=== PATIENT | male | born 1995 | race Caucasian/White ===

== ENCOUNTER 2021-02-25 22:50 | Inpatient (IN) | payer MEDICAID ==
[2021-02-25] MEDS ORDERED: Pantoprazole 40 MG in Sodium Chloride 0.9% 100 ML IV ONE (23:28)
[2021-02-25] MEDS ORDERED: Ondansetron 4 MG/2 ML SDV IVPUSH ONE (23:29)
[2021-02-25] MEDS ORDERED: HYDROmorphone 1 MG/ML Syringe IVPUSH ONE (23:29)
[2021-02-25] MEDS ORDERED: Sodium Chloride 0.9% 1,000 ML IV ONE (23:30)
--- NOTE | 2021-02-26 01:46 | EDM.PDOC ---
ED HPI GENERAL MEDICAL PROBLEM - General Chief Complaint: Abdominal Pain Stated Complaint: ABDOMINAL PAIN Time Seen by Provider: 02/25/21 23:15 Source of Information: Reports: Patient History Limitations: Reports: No Limitations - History of Present Illness INITIAL COMMENTS - FREE TEXT/NARRATIVE: Patient is a 25-year-old male who is complaining of having 3 days of abdominal pain with vomiting for which he was just seen this afternoon at [facility] emergency department and was worked up there including an CT of his abdomen which showed him to have a early small bowel obstruction and was being admitted there after consulting with their surgeon on patient left AGAINST MEDICAL ADVICE because the 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 Patient is from [place]. He has had a bowel resection due to bowel obstruction previously. He has had no other surgeries. And he states there was no known reason for his earlier bowel obstruction. He states he is not been passing gas and has not had any bowel movements today. He states his pain is similar to his previous bowel obstruction. He has taken nothing for his current symptoms. He has no other past medical history. 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 Past Medical History HEENT History: Reports: Sinusitis Gastrointestinal History: Reports: Bowel Obstruction Other Gastrointestinal History: surgery to repair bowel obstruction 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 Constitutional: Reports: No Symptoms Respiratory: Reports: No Symptoms Cardiovascular: Reports: No Symptoms GI/Abdominal: Reports: Abdominal Pain, Decreased Appetite, Nausea, Vomiting. Denies: Diarrhea : Reports: No Symptoms ED EXAM, GI/ABD - Physical Exam Exam: See Below Exam Limited By: No Limitations General Appearance: Alert, No Apparent Distress Head: Normocephalic Neck: Normal Inspection Respiratory/Chest: No Respiratory Distress, Lungs Clear Cardiovascular: Regular Rate, Rhythm, No JVD GI/Abdominal Exam: Tender, Abnormal Bowel Sounds. No: Mass Back Exam: Normal Inspection Extremities: Normal Inspection Neurological: Alert, Oriented Psychiatric: Normal Affect, Normal Mood Skin Exam: Warm, Dry Course - Vital Signs Text/Narrative:: He obtain lab work and CT report and ED provider records from [facility]. Indeed patient was being admitted for early small bowel obstruction when he left AGAINST MEDICAL ADVICE. Patient was given a dose of Zosyn there. The surgeon had recommended an NG tube. Patient was discussed with our surgeon Dr. Perez who recommends that we do keep him here in the department with IV fluids and NG tube and he will see him in the morning. At that point it will be determine whether he needs admission or is improved enough that he can be discharged home. Last Recorded V/S: Last Vital Signs Temp 99.3 F 02/26/21 07:45 Pulse 78 02/26/21 07:45 Resp 16 02/26/21 07:45 BP 122/79 02/26/21 07:45 Pulse Ox 100 02/26/21 07:45 - Orders/Labs/Meds Orders: Active Orders 24 hr Category Date Time Status Gastrointestinal Tube Mgmt [RC] ASDIRECTED Care 02/26/21 00:45 Active CBC WITH MANUAL DIFF [HEME] Stat Lab 02/26/21 06:45 Results Sodium Chloride 0.9% [Normal Saline] 1,000 ml Med 02/26/21 02:37 Active IV ONETIME NG [Nasogastric Orogastric Tube Insertion] [OM.PC] Oth 02/26/21 00:45 Ordered Routine Medication Orders Sodium Chloride (Normal Saline) 1,000 mls @ 150 mls/hr IV ONETIME ONE Stop: 02/26/21 09:16 Last Admin: 02/26/21 02:42 Dose: 150 mls/hr Documented by: DARCY Labs: Laboratory Tests 02/26/21 02/26/21 02/26/21 Range/Units 06:45 06:45 06:45 WBC 11.16 H (4.23-9.07) K/mm3 RBC 4.38 L (4.63-6.08) M/mm3 Hgb 13.7 (13.7-17.5) gm/dl Hct 40.1 (40.1-51.0) % MCV 91.6 (79.0-92.2) fl MCH 31.3 (25.7-32.2) pg MCHC 34.2 (32.2-35.5) g/dl RDW Std Deviation 41.1 (35.1-43.9) fL Plt Count 239 (163-337) K/mm3 MPV 9.1 L (9.4-12.3) fl Sodium 147 H (136-145) mEq/L Potassium 3.9 (3.5-5.1) mEq/L Chloride 111 H (98-107) mEq/L Carbon Dioxide 27 (21-32) mEq/L Anion Gap 12.9 (5-15) BUN 9 (7-18) mg/dL Creatinine 0.8 (0.7-1.3) mg/dL Est Cr Clr Drug Dosing 125.32 mL/min Estimated GFR (MDRD) > 60 (>60) mL/min BUN/Creatinine Ratio 11.3 L (14-18) Glucose 101 H (70-99) mg/dL Lactic Acid 0.6 (0.4-2.0) mmol/L Calcium 9.2 (8.5-10.1) mg/dL Total Bilirubin 0.6 (0.2-1.0) mg/dL AST 7 L (15-37) U/L ALT 15 L (16-63) U/L Alkaline Phosphatase 96 (46-116) U/L Total Protein 6.1 L (6.4-8.2) g/dl Albumin 3.8 (3.4-5.0) g/dl Globulin 2.3 gm/dL Albumin/Globulin Ratio 1.7 (1-2) Meds: Medications Generic Name Dose Route Start Last Admin Trade Name Freq PRN Reason Stop Dose Admin Sodium Chloride 1,000 mls @ 150 mls/hr 02/26/21 02:37 02/26/21 02:42 Normal Saline IV 02/26/21 09:16 150 mls/hr ONETIME ONE Administration Discontinued Medications Generic Name Dose Route Start Last Admin Trade Name Freq PRN Reason Stop Dose Admin Hydromorphone HCl 1 mg 02/25/21 23:29 02/26/21 00:18 Hydromorphone 1 Mg/Ml Syringe IVPUSH 02/25/21 23:30 1 mg ONETIME ONE Administration Hydromorphone HCl 1 mg 02/26/21 06:07 02/26/21 06:13 Hydromorphone 1 Mg/Ml Syringe IVPUSH 02/26/21 06:08 1 mg ONETIME ONE Administration Pantoprazole Sodium 40 mg/ 100 mls @ 200 mls/hr 02/25/21 23:28 02/26/21 00:13 Sodium Chloride IV 02/25/21 23:57 200 mls/hr ONETIME ONE Administration Sodium Chloride 1,000 mls @ 1,000 mls/hr 02/25/21 23:30 02/26/21 00:12 Normal Saline IV 02/26/21 00:29 1,000 mls/hr ONETIME ONE Administration Sodium Chloride 150 mls @ 150 mls/hr 02/26/21 02:25 02/26/21 02:37 Normal Saline IV 02/26/21 03:24 Not Given ASDIRECTED ONE Sodium Chloride Confirm 02/26/21 02:33 02/26/21 02:37 Normal Saline Administered 02/26/21 02:34 Not Given Dose 1,000 mls @ as directed .ROUTE .STK-MED ONE Ondansetron HCl 4 mg 02/25/21 23:29 02/26/21 00:13 Ondansetron 4 Mg/2 Ml Sdv IVPUSH 02/25/21 23:30 4 mg ONETIME ONE Administration Departure - Departure Disposition: Still A Patient 30 - Discharge Information Referrals: PCP,Not In Area [Primary Care Provider] - Forms: ED Department Discharge Sepsis Event Note (ED) - Evaluation Sepsis Screening Result: No Definite Risk - Focused Exam Vital Signs: Vital Signs Temp Pulse Resp BP Pulse Ox 02/26/21 07:45 99.3 F 78 16 122/79 100 02/25/21 23:08 99.2 F 98 20 140/83 98 - My Orders Last 24 Hours: My Active Orders 02/26/21 00:45 Gastrointestinal Tube Mgmt [RC] ASDIRECTED NG [Nasogastric Orogastric Tube Insertion] [OM.PC] Routine 02/26/21 02:37 Sodium Chloride 0.9% [Normal Saline] 1,000 ml IV ONETIME 02/26/21 06:45 CBC WITH MANUAL DIFF [HEME] Stat - Assessment/Plan Last 24 Hours: My Active Orders 02/26/21 00:45 Gastrointestinal Tube Mgmt [RC] ASDIRECTED NG [Nasogastric Orogastric Tube Insertion] [OM.PC] Routine 02/26/21 02:37 Sodium Chloride 0.9% [Normal Saline] 1,000 ml IV ONETIME 02/26/21 06:45 CBC WITH MANUAL DIFF [HEME] Stat
[2021-02-26] MEDS ORDERED: Sodium Chloride 0.9% 1,000 ML ONE (02:33)
[2021-02-26] MEDS ORDERED: Sodium Chloride 0.9% 1,000 ML IV ONE (02:37)
[2021-02-26] MEDS ORDERED: HYDROmorphone 1 MG/ML Syringe IVPUSH ONE (06:07)
--- NOTE | 2021-02-26 06:53 | CR ---
Chest: Frontal view of the chest was obtained. Comparison: No prior chest imaging is available. Nasogastric tube is seen. Tip lies minimally past the gastroesophageal junction and should be advanced. No tube coiling is seen. Heart size and mediastinum are normal. Lungs show no acute parenchymal change. Small portion of the lateral chest was not included on the exam. No discrete bony abnormality is appreciated. Impression: 1. Nasogastric tube is seen. No coiling is noted. Tip lies slightly past the gastroesophageal junction and should be advanced. 2. Nothing acute is otherwise seen on somewhat limited chest x-ray. Diagnostic code #2
[2021-02-26] MEDS ORDERED: Ondansetron 4 MG/2 ML SDV IVPUSH ONE (08:45)
[2021-02-26] MEDS ORDERED: Morphine 4 MG/ML Syringe IVPUSH ONE (08:45)
--- NOTE | 2021-02-26 09:20 | PCM.HP.2 ---
H&P History of Present Illness - General Date of Service: 02/26/21 Source of Information: Patient History Limitations: Reports: No Limitations - History of Present Illness Initial Comments - Free Text/Narative: Patient reports that he had abdominal pain, nausea and vomiting for the past 3-4 days. In the past day he had not been able to eat much or drink much. He presented to the ER in [place] for this issue. He reports that CT revealed concern for developing small bowel obstruction and was admitted for bowel rest and NGT. But he left AMA as his crew was leaving the location and he did not have any other transportation. He came to [facility] for continued care. In the ER he continued to have mild-moderate abdominal pain. His pain is mostly periumbilical. Still not tolerating much, feels blotted. 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 Unfortunately there are no formal CT images or report for me to review at this time. He continues to be stable. WBC is 11. Last BM was 3 days ago. Not passed gas in the past 24-48 hrs. Smokes cigarettes but denies any other drug use including marijuana. 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 Past Medical History HEENT History: Reports: Sinusitis Gastrointestinal History: Reports: Bowel Obstruction Other Gastrointestinal History: surgery to repair bowel obstruction 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 - Infectious Disease History Infectious Disease History: Reports: None Social & Family History - Family History Family Medical History: No Pertinent Family History - Tobacco Use Tobacco Use Status *Q: Current Some Day Tobacco User Years of Tobacco use: 9 Packs/Tins Daily: 0.5 - Caffeine Use Caffeine Use: Reports: None - Recreational Drug Use Recreational Drug Use: No H&P Review of Systems - Review of Systems: Review Of Systems: See Below General: Reports: No Symptoms HEENT: Reports: No Symptoms Pulmonary: Reports: No Symptoms Cardiovascular: Reports: No Symptoms Gastrointestinal: Reports: Abdominal Pain, Anorexia Genitourinary: Reports: No Symptoms Musculoskeletal: Reports: No Symptoms Skin: Reports: No Symptoms Psychiatric: Reports: No Symptoms Neurological: Reports: No Symptoms Exam - Exam Exam: See Below - Vital Signs Vital Signs: Last Vital Signs Temp 99.3 F 02/26/21 07:45 Pulse 78 02/26/21 07:45 Resp 16 02/26/21 07:45 BP 122/79 02/26/21 07:45 Pulse Ox 100 02/26/21 07:45 Weight: 63.321 kg - Exam General: Alert, Oriented, Cooperative Lungs: Clear to Auscultation, Normal Respiratory Effort Cardiovascular: Regular Rate, Regular Rhythm, Normal S1, Normal S2 GI/Abdominal Exam: Soft, No Mass, Distended (mild), Tender (in the ligline, periumbilical. very tender a the prior supraumbilical midline incision) (Male) Exam: Hernia (likely an incisional hernia at the supraumbilical midline incision) - Patient Data Lab Results Last 24 hrs: Laboratory Results - last 24 hr 02/26/21 02/26/21 02/26/21 Range/Units 06:45 06:45 06:45 WBC 11.16 H (4.23-9.07) K/mm3 RBC 4.38 L (4.63-6.08) M/mm3 Hgb 13.7 (13.7-17.5) gm/dl Hct 40.1 (40.1-51.0) % MCV 91.6 (79.0-92.2) fl MCH 31.3 (25.7-32.2) pg MCHC 34.2 (32.2-35.5) g/dl RDW Std Deviation 41.1 (35.1-43.9) fL Plt Count 239 (163-337) K/mm3 MPV 9.1 L (9.4-12.3) fl Neutrophils % (Manual) 78 H (40-60) % Band Neutrophils % 0 (0-10) % Lymphocytes % (Manual) 21 (20-40) % Atypical Lymphs % 0 % Monocytes % (Manual) 0 L (2-10) % Eosinophils % (Manual) 0 L (0.8-7.0) % Basophils % (Manual) 1 (0.2-1.2) Platelet Estimate Adequate Plt Morphology Comment Normal RBC Morph Comment Normal Sodium 147 H (136-145) mEq/L Potassium 3.9 (3.5-5.1) mEq/L Chloride 111 H (98-107) mEq/L Carbon Dioxide 27 (21-32) mEq/L Anion Gap 12.9 (5-15) BUN 9 (7-18) mg/dL Creatinine 0.8 (0.7-1.3) mg/dL Est Cr Clr Drug Dosing 125.32 mL/min Estimated GFR (MDRD) > 60 (>60) mL/min BUN/Creatinine Ratio 11.3 L (14-18) Glucose 101 H (70-99) mg/dL Lactic Acid 0.6 (0.4-2.0) mmol/L Calcium 9.2 (8.5-10.1) mg/dL Total Bilirubin 0.6 (0.2-1.0) mg/dL AST 7 L (15-37) U/L ALT 15 L (16-63) U/L Alkaline Phosphatase 96 (46-116) U/L Total Protein 6.1 L (6.4-8.2) g/dl Albumin 3.8 (3.4-5.0) g/dl Globulin 2.3 gm/dL Albumin/Globulin Ratio 1.7 (1-2) Result Diagrams: 02/26/21 06:45 02/26/21 06:45 Sepsis Event Note - Evaluation Sepsis Screening Result: No Definite Risk - Focused Exam Vital Signs: Vital Signs Temp Pulse Resp BP Pulse Ox 02/26/21 07:45 99.3 F 78 16 122/79 100 02/25/21 23:08 99.2 F 98 20 140/83 98 Problem List Initiated/Reviewed/Updated: No Orders Last 24hrs: Active Orders 24 hr Category Date Time Status Gastrointestinal Tube Mgmt [RC] ASDIRECTED Care 02/26/21 00:45 Active NG [Nasogastric Orogastric Tube Insertion] [OM.PC] Oth 02/26/21 00:45 Ordered Routine Assessment/Plan Comment:: Patient had a history of abdominal operation 1 yr ago who presents with abd pain, nausea and vomiting as well as lack of bowel function. Third like reports from the CT suggests SBO. We will treat the patient as SBO at this time. - Patient is hemodynamically normal - NPO, IVF, bowel rest - We will obtain CT images from outside facility - Contrast challenge this AM. Give PO contrast and do abdominal Xray after 6-8 hrs to see contrast progression - Admit the patient for observation - Mortality Measure Prognosis:: Good (Localized disease and no major comorbidities)
[2021-02-26] MEDS ORDERED: Benzocaine 20% Topical Spray UD ONE (09:55)
[2021-02-26] MEDS ORDERED: Benzocaine 20% Topical Spray UD MUCMEM ONE (10:10)
[2021-02-26] MEDS ORDERED: FLU Vacc QS2021-22 36MOS UP/PF 60 MCG/0.5 ML Syringe IM ONE (11:30)
[2021-02-26] MEDS ORDERED: Diatrizoate Meglumine/Diatrizoate Sodium 37% 120 ML Bottle PO ONE (12:06)
[2021-02-26] MEDS ORDERED: Ondansetron 4 MG/2 ML SDV IV PRN (13:09)
[2021-02-26] MEDS: Lactated Ringers 1,000 ML IV SCH ×2 (13:40→21:16)
[2021-02-26] MEDS: Morphine 2 MG/ML SYRINGE IVPUSH PRN ×4 (13:40→21:39)
--- NOTE | 2021-02-26 14:04 | PCM.SN.2 ---
- Free Text/Narrative Note: I reviewed CT images from [place]. No major obvious findings. No catastrophic findings. No specific signs of bowel obstruction. Small bowel anastomosis appears patent. We will continue with a Gastrografin challenge at this time.
[2021-02-26] MEDS: Nicotine 21 MG/24 Hr Patch TRDERM SCH (16:30)
[2021-02-26] MEDS ORDERED: traZODone 50 MG Tab PO ONE (20:05)
[2021-02-26] MEDS: Pantoprazole 40 MG Vial IV SCH (21:01)
[2021-02-27] MEDS: Morphine 2 MG/ML SYRINGE IVPUSH PRN ×3 (02:04→05:17)
[2021-02-27] MEDS: Lactated Ringers 1,000 ML IV SCH (05:17)
--- NOTE | 2021-02-27 07:03 | CR ---
Abdomen: Upright view of the abdomen was obtained. Comparison: No prior abdominal x-ray is available. Bowel gas and contrast is noted within the colon. This shows no bowel obstruction. No free air is seen. Bony structures appear within normal limits. No discrete soft tissue abnormality is appreciated. Impression: 1. Nothing acute is seen on upright abdominal x-ray. Diagnostic code #1 I agree with preliminary report from [facility], finalized on 02/26/21, 11:00 [employer], code 1
--- NOTE | 2021-02-27 08:17 | PCM.PN ---
- General Info Date of Service: 02/27/21 Admission Dx/Problem (Free Text): SBO Subjective Update: No nausea or vomiting. Abdominal pain is better. He is ow passing gas and has several stools yesterday. Tolerated clear just fine since yesterday Functional Status: Reports: Pain Controlled, Tolerating Diet, Ambulating, Urinating - Review of Systems General: Reports: No Symptoms HEENT: Reports: No Symptoms Pulmonary: Reports: No Symptoms Cardiovascular: Reports: No Symptoms Gastrointestinal: Reports: Abdominal Pain Genitourinary: Reports: No Symptoms Musculoskeletal: Reports: No Symptoms Skin: Reports: No Symptoms Neurological: Reports: No Symptoms - Patient Data Vitals - Most Recent: Last Vital Signs Temp 97.5 F 02/27/21 08:05 Pulse 79 02/27/21 08:05 Resp 17 02/27/21 08:05 BP 125/79 02/27/21 08:05 Pulse Ox 97 02/27/21 08:05 Weight - Most Recent: 62.505 kg I&O - Last 24 Hours: Intake & Output 02/26/21 02/27/21 02/27/21 22:59 06:59 14:59 Intake Total 400 1500 Balance 400 1500 Lab Results Last 24 Hours: Laboratory Results - last 24 hr 02/26/21 02/27/21 Range/Units 06:45 06:15 WBC 12.38 H (4.23-9.07) K/mm3 RBC 4.47 L (4.63-6.08) M/mm3 Hgb 13.8 (13.7-17.5) gm/dl Hct 40.7 (40.1-51.0) % MCV 91.1 (79.0-92.2) fl MCH 30.9 (25.7-32.2) pg MCHC 33.9 (32.2-35.5) g/dl RDW Std Deviation 40.1 (35.1-43.9) fL Plt Count 258 (163-337) K/mm3 MPV 9.2 L (9.4-12.3) fl Neut % (Auto) 72.9 H (34.0-67.9) % Lymph % (Auto) 18.6 L (21.8-53.1) % [place] % (Auto) 7.7 (5.3-12.2) % Eos % (Auto) 0.4 L (0.8-7.0) Baso % (Auto) 0.2 (0.1-1.2) % Neut # (Auto) 9.03 H (1.78-5.38) K/mm3 Lymph # (Auto) 2.30 (1.32-3.57) K/mm3 [place] # (Auto) 0.95 H (0.30-0.82) K/mm3 Eos # (Auto) 0.05 (0.04-0.54) K/mm3 Baso # (Auto) 0.03 (0.01-0.08) K/mm3 Neutrophils % (Manual) 78 H (40-60) % Band Neutrophils % 0 (0-10) % Lymphocytes % (Manual) 21 (20-40) % Atypical Lymphs % 0 % Monocytes % (Manual) 0 L (2-10) % Eosinophils % (Manual) 0 L (0.8-7.0) % Basophils % (Manual) 1 (0.2-1.2) Platelet Estimate Adequate Plt Morphology Comment Normal RBC Morph Comment Normal Med Orders - Current: Current Medications Enoxaparin Sodium (Enoxaparin 40 Mg/0.4 Ml Syringe) 40 mg SUBCUT DAILY [facility] Lactated Ringer's (Ringers, Lactated) 1,000 mls @ 125 mls/hr IV ASDIRECTED [facility] Last Admin: 02/27/21 05:17 Dose: 125 mls/hr Documented by: Miscellaneous Information (Remove Patch) 0 ea TRDERM DAILY [facility] Morphine Sulfate (Morphine 2 Mg/Ml Syringe) 2 mg IVPUSH Q2H PRN PRN Reason: Pain (severe 7-10) Stop: 02/27/21 13:10 Last Admin: 02/27/21 05:17 Dose: 2 mg Documented by: Nicotine (Nicotine 21 Mg/24 Hr Patch) 21 mg TRDERM DAILY [facility] Last Admin: 02/26/21 16:30 Dose: 21 mg Documented by: Ondansetron HCl (Ondansetron 4 Mg/2 Ml Sdv) 4 mg IV Q4H PRN PRN Reason: Nausea/Vomiting Pantoprazole Sodium (Pantoprazole 40 Mg Vial) 40 mg IV Q12HR [facility] Last Admin: 02/26/21 21:01 Dose: 40 mg Documented by: Discontinued Medications Benzocaine (Benzocaine 20% Topical [place] Ud) Confirm Administered Dose 1 each .ROUTE .STK-MED ONE Stop: 02/26/21 09:56 Last Admin: 02/26/21 10:10 Dose: Not Given Documented by: Benzocaine (Benzocaine 20% Topical [place] Ud) 1 each MUCMEM ONETIME ONE Stop: 02/26/21 10:11 Last Admin: 02/26/21 10:11 Dose: 1 each Documented by: Diatrizoate Meglum/Diatrizoate Sod (Diatrizoate Meglumine/Diatrizoate Sodium 37% 120 Ml Bottle) 120 ml PO ONETIME ONE Stop: 02/26/21 12:07 Last Admin: 02/26/21 13:06 Dose: 1 bot Documented by: Hydromorphone HCl (Hydromorphone 1 Mg/Ml Syringe) 1 mg IVPUSH ONETIME ONE Stop: 02/25/21 23:30 Last Admin: 02/26/21 00:18 Dose: 1 mg Documented by: Hydromorphone HCl (Hydromorphone 1 Mg/Ml Syringe) 1 mg IVPUSH ONETIME ONE Stop: 02/26/21 06:08 Last Admin: 02/26/21 06:13 Dose: 1 mg Documented by: Pantoprazole Sodium 40 mg/ (Sodium Chloride) 100 mls @ 200 mls/hr IV ONETIME ONE Stop: 02/25/21 23:57 Last Admin: 02/26/21 00:13 Dose: 200 mls/hr Documented by: Sodium Chloride (Normal Saline) 1,000 mls @ 1,000 mls/hr IV ONETIME ONE Stop: 02/26/21 00:29 Last Admin: 02/26/21 00:12 Dose: 1,000 mls/hr Documented by: Sodium Chloride (Normal Saline) 150 mls @ 150 mls/hr IV ASDIRECTED ONE Stop: 02/26/21 03:24 Last Admin: 02/26/21 02:37 Dose: Not Given Documented by: Sodium Chloride (Normal Saline) Confirm Administered Dose 1,000 mls @ as directed .ROUTE .STK-MED ONE Stop: 02/26/21 02:34 Last Admin: 02/26/21 02:37 Dose: Not Given Documented by: Sodium Chloride (Normal Saline) 1,000 mls @ 150 mls/hr IV ONETIME ONE Stop: 02/26/21 09:16 Last Admin: 02/26/21 02:42 Dose: 150 mls/hr Documented by: Influenza Virus Vaccine (Flu Vacc [id number] 36mos Up/Pf 60 Mcg/0.5 Ml Syringe) 60 mcg IM .ONCE ONE Stop: 02/26/21 11:31 Last Admin: 02/27/21 07:52 Dose: Not Given Documented by: Morphine Sulfate (Morphine 4 Mg/Ml Syringe) 4 mg IVPUSH ONETIME ONE Stop: 02/26/21 08:46 Last Admin: 02/26/21 09:40 Dose: 4 mg Documented by: Ondansetron HCl (Ondansetron 4 Mg/2 Ml Sdv) 4 mg IVPUSH ONETIME ONE Stop: 02/25/21 23:30 Last Admin: 02/26/21 00:13 Dose: 4 mg Documented by: Ondansetron HCl (Ondansetron 4 Mg/2 Ml Sdv) 4 mg IVPUSH ONETIME ONE Stop: 02/26/21 08:46 Last Admin: 02/26/21 09:38 Dose: 4 mg Documented by: Trazodone HCl (Trazodone 50 Mg Tab) 50 mg PO ONETIME ONE Stop: 02/26/21 20:06 Last Admin: 02/26/21 21:17 Dose: 50 mg Documented by: - Exam General: Alert, Oriented, Cooperative Lungs: Clear to Auscultation, Normal Respiratory Effort Cardiovascular: Regular Rate, Regular Rhythm, No Murmurs GI/Abdominal Exam: Soft, No Distention, No Mass, Tender (there is some tenderness in the epigastrium at and around the prior incision) - Patient Data Lab Results Last 24 hrs: Laboratory Results - last 24 hr 02/26/21 02/27/21 Range/Units 06:45 06:15 WBC 12.38 H (4.23-9.07) K/mm3 RBC 4.47 L (4.63-6.08) M/mm3 Hgb 13.8 (13.7-17.5) gm/dl Hct 40.7 (40.1-51.0) % MCV 91.1 (79.0-92.2) fl MCH 30.9 (25.7-32.2) pg MCHC 33.9 (32.2-35.5) g/dl RDW Std Deviation 40.1 (35.1-43.9) fL Plt Count 258 (163-337) K/mm3 MPV 9.2 L (9.4-12.3) fl Neut % (Auto) 72.9 H (34.0-67.9) % Lymph % (Auto) 18.6 L (21.8-53.1) % [place] % (Auto) 7.7 (5.3-12.2) % Eos % (Auto) 0.4 L (0.8-7.0) Baso % (Auto) 0.2 (0.1-1.2) % Neut # (Auto) 9.03 H (1.78-5.38) K/mm3 Lymph # (Auto) 2.30 (1.32-3.57) K/mm3 [place] # (Auto) 0.95 H (0.30-0.82) K/mm3 Eos # (Auto) 0.05 (0.04-0.54) K/mm3 Baso # (Auto) 0.03 (0.01-0.08) K/mm3 Neutrophils % (Manual) 78 H (40-60) % Band Neutrophils % 0 (0-10) % Lymphocytes % (Manual) 21 (20-40) % Atypical Lymphs % 0 % Monocytes % (Manual) 0 L (2-10) % Eosinophils % (Manual) 0 L (0.8-7.0) % Basophils % (Manual) 1 (0.2-1.2) Platelet Estimate Adequate Plt Morphology Comment Normal RBC Morph Comment Normal Result Diagrams: 02/27/21 06:15 02/26/21 06:45 Sepsis Event Note - Evaluation Sepsis Screening Result: No Definite Risk - Focused Exam Vital Signs: Vital Signs Temp Pulse Resp BP Pulse Ox 02/27/21 08:05 97.5 F 79 17 125/79 97 02/27/21 05:21 98.4 F 79 15 136/79 96 02/27/21 00:00 82 126/83 97 02/26/21 23:59 99.3 F 76 15 112/95 H 98 02/26/21 21:30 99.0 F 77 15 132/77 96 - Problem List Review Problem List Initiated/Reviewed/Updated: No - My Orders Last 24 Hours: My Active Orders 02/26/21 11:25 Vaccine to be Administered/Admin Charge [RC] ASDIRECTED 02/26/21 13:09 Intake and Output [RC] 04,16 Oxygen Therapy [RC] PRN Up ad Geetha [RC] Q8H VTE/DVT Education [RC] 1000 Vital Signs [RC] Q4HR Morphine 2 mg IVPUSH Q2H PRN Ondansetron [Zofran] 4 mg IV Q4H PRN Sequential Compression Device [OM.PC] Per Unit Routine Resuscitation Status Routine 02/26/21 13:11 Antiembolic Devices [RC] DAILY 02/26/21 13:15 Lactated Ringers [Ringers, Lactated] 1,000 ml IV ASDIRECTED 02/26/21 16:15 Nicotine [Habitrol] 21 mg TRDERM DAILY 02/26/21 21:00 Pantoprazole [ProTONIX IV] 40 mg IV Q12HR 02/27/21 05:11 BASIC METABOLIC PANEL,BMP [CHEM] AM MAGNESIUM [CHEM] AM PHOSPHORUS [CHEM] AM 02/27/21 Breakfast Regular Diet [DIET] 02/27/21 09:00 Enoxaparin [Lovenox] 40 mg SUBCUT DAILY Remove Patch 0 ea TRDERM DAILY 02/28/21 05:11 BASIC METABOLIC PANEL,BMP [CHEM] AM CBC WITH AUTO DIFF [HEME] AM MAGNESIUM [CHEM] AM PHOSPHORUS [CHEM] AM 03/01/21 05:11 BASIC METABOLIC PANEL,BMP [CHEM] AM CBC WITH AUTO DIFF [HEME] AM MAGNESIUM [CHEM] AM PHOSPHORUS [CHEM] AM - Assessment Assessment:: HD2 for SBO. Contrast challenge does not show any obstruction. Contrast is in the left colon. Patient has no nausea or vomiting anymore. Abdominal pain is better. However, there still remains slight leukocytosis. No clear source. - Plan Plan:: - discontinue IVF - Start reg diet this morning. If he tolerated solid breakfast and lunch and still feels well, then he can potentially be discharged this afternoon. If clinical status deteriorates after starting diet, then we will continue observation. Patient is in agreement with this plan. - DC pain medications - encourage ambulation.
[2021-02-27] MEDS ORDERED: Docusate Sodium 100 MG Cap PO PRN (08:18)
[2021-02-27] MEDS: Nicotine 21 MG/24 Hr Patch TRDERM SCH (10:41)
[2021-02-27] MEDS: oxyCODONE 5 MG Tab PO PRN ×3 (10:42→22:22)
[2021-02-27] MEDS: Enoxaparin 40 MG/0.4 ML Syringe SUBCUT SCH (10:42)
[2021-02-27] MEDS: Pantoprazole 40 MG Vial IV SCH ×2 (10:45→21:12)
[2021-02-27] MEDS: D5 1/2 NS w/ 20 mEq/L KCl 1,000 ML IV SCH ×2 (10:52→21:09)
[2021-02-27] MEDS: Sucralfate 1 GM Tab PO SCH ×3 (10:52→21:11)
--- NOTE | 2021-02-27 17:07 | US ---
Limited abdominal ultrasound: Multiple real-time images were obtained of the upper right abdomen. Comparison: Prior abdominal x-ray of 02/26/21. Liver shows no focal abnormality. Gallbladder is not well distended. No shadowing gallstones are seen. No discrete gallbladder wall thickening is seen. No biliary duct dilatation is seen. Right kidney shows no hydronephrosis or mass. Right kidney has a length of 11.5 cm. Proximal aorta shows no aneurysm. Pancreas shows no discrete abnormality. Inferior vena cava is patent. Main portal vein shows normal hepatopedal flow. Impression: 1. Gallbladder is not well distended. No shadowing gallstones, discrete gallbladder wall thickening or biliary duct dilatation is seen. 2. Other portions of the right upper quadrant abdominal ultrasound appear unremarkable. Diagnostic code #1
--- NOTE | 2021-02-27 17:19 | PCM.SN.2 ---
- Free Text/Narrative Note: Patient failed trial of regular diet this AM as he had epigastric pain while trying to eat solid breakfast. I was notified of this and made the patient NPO with meds, IVF He is doing better now. RUQ US was ordered and done. No gallstones. GB otherwise normal appearing. Patient reports to have been taking Ibuprofen daily. I suspect PUD. Will plan for EGD tomorrow at 0730 I discussed with the patient the plan for EGD. Risks, benefits and alternatives to the procedure were discussed and informed consent was signed. TOnight: CLD now, NPO at ID. Continue protonix and carafate.
[2021-02-27] MEDS: Melatonin 3 MG Tab PO PRN (21:12)
[2021-02-28] MEDS ORDERED: Morphine 2 MG/ML SYRINGE IVPUSH ONE (02:14)
[2021-02-28] MEDS: oxyCODONE 5 MG Tab PO PRN ×3 (03:16→20:24)
[2021-02-28] MEDS: Morphine 2 MG/ML SYRINGE IVPUSH PRN ×5 (04:15→21:32)
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
[2021-02-28] MEDS ORDERED: Midazolam 1 MG/ML 2 ML SDV ONE (06:41)
[2021-02-28] MEDS ORDERED: Lactated Ringers 1,000 ML ONE (06:41)
[2021-02-28] MEDS ORDERED: fentaNYL 100 MCG/2 ML SDV ONE (06:41)
[2021-02-28] MEDS ORDERED: Propofol 200 MG/20 ML SDV ONE (06:42)
--- NOTE | 2021-02-28 07:50 | PCM48HPAN ---
Post Anesthesia Note - EVALUATION WITHIN 48HRS OF ANESTHETIC Vital Signs in Normal Range: Yes Patient Participated in Evaluation: Yes Respiratory Function Stable: Yes Airway Patent: Yes Cardiovascular Function Stable: Yes Hydration Status Stable: Yes Pain Control Satisfactory: Yes Nausea and Vomiting Control Satisfactory: Yes Mental Status Recovered: Yes Vital Signs: Last Vital Signs Temp 36.6 C 02/28/21 04:19 Pulse 63 02/28/21 04:19 Resp 14 02/28/21 04:19 BP 127/68 02/28/21 04:19 Pulse Ox 95 02/28/21 04:19
--- NOTE | 2021-02-28 07:55 | PCM.PN ---
- General Info Date of Service: 02/28/21 Admission Dx/Problem (Free Text): SBO Subjective Update: Patient had pain last night after eating a popsicle around midnight again. Morphine helped. Other clears were fine. Pain is much better this AM. Functional Status: Reports: Pain Controlled - Review of Systems General: Reports: No Symptoms HEENT: Reports: No Symptoms Pulmonary: Reports: No Symptoms Cardiovascular: Reports: No Symptoms Gastrointestinal: Reports: Abdominal Pain Genitourinary: Reports: No Symptoms Musculoskeletal: Reports: No Symptoms - Patient Data Vitals - Most Recent: Last Vital Signs Temp 97.9 F 02/28/21 04:19 Pulse 63 02/28/21 04:19 Resp 14 02/28/21 04:19 BP 127/68 02/28/21 04:19 Pulse Ox 95 02/28/21 04:19 Weight - Most Recent: 62.505 kg I&O - Last 24 Hours: Intake & Output 02/27/21 02/28/21 02/28/21 22:59 06:59 14:59 Intake Total 500 1200 Balance 500 1200 Lab Results Last 24 Hours: Laboratory Results - last 24 hr 02/27/21 02/28/21 02/28/21 Range/Units 06:15 06:14 06:14 WBC 9.40 H (4.23-9.07) K/mm3 RBC 4.48 L (4.63-6.08) M/mm3 Hgb 13.9 (13.7-17.5) gm/dl Hct 40.9 (40.1-51.0) % MCV 91.3 (79.0-92.2) fl MCH 31.0 (25.7-32.2) pg MCHC 34.0 (32.2-35.5) g/dl RDW Std Deviation 40.7 (35.1-43.9) fL Plt Count 243 (163-337) K/mm3 MPV 9.1 L (9.4-12.3) fl Neut % (Auto) 58.0 (34.0-67.9) % Lymph % (Auto) 32.3 (21.8-53.1) % Price % (Auto) 8.7 (5.3-12.2) % Eos % (Auto) 0.6 L (0.8-7.0) Baso % (Auto) 0.2 (0.1-1.2) % Neut # (Auto) 5.44 H (1.78-5.38) K/mm3 Lymph # (Auto) 3.04 (1.32-3.57) K/mm3 Price # (Auto) 0.82 (0.30-0.82) K/mm3 Eos # (Auto) 0.06 (0.04-0.54) K/mm3 Baso # (Auto) 0.02 (0.01-0.08) K/mm3 Sodium 144 144 (136-145) mEq/L Potassium 3.5 3.8 (3.5-5.1) mEq/L Chloride 108 H 108 H (98-107) mEq/L Carbon Dioxide 28 28 (21-32) mEq/L Anion Gap 11.5 11.8 (5-15) BUN 4 L 5 L (7-18) mg/dL Creatinine 0.8 1.0 (0.7-1.3) mg/dL Est Cr Clr Drug Dosing 123.71 98.97 mL/min Estimated GFR (MDRD) > 60 > 60 (>60) mL/min BUN/Creatinine Ratio 5.0 L 5.0 L (14-18) Glucose 105 H 115 H (70-99) mg/dL Calcium 9.1 9.1 (8.5-10.1) mg/dL Phosphorus 3.0 3.5 (2.6-4.7) mg/dL Magnesium 1.8 2.0 (1.8-2.4) mg/dL Med Orders - Current: Current Medications Docusate Sodium (Docusate Sodium 100 Mg Cap) 100 mg PO Q12H PRN PRN Reason: Constipation Enoxaparin Sodium (Enoxaparin 40 Mg/0.4 Ml Syringe) 40 mg SUBCUT DAILY [facility] Last Admin: 02/27/21 10:42 Dose: 40 mg Documented by: Potassium Chloride/Dextrose/Sod Cl (D5 1/2 Ns W/ 20 Meq/L Kcl) 1,000 mls @ 100 mls/hr IV ASDIRECTED [facility] Last Admin: 02/27/21 21:09 Dose: 100 mls/hr Documented by: Melatonin (Melatonin 3 Mg Tab) 3 mg PO BEDTIME PRN PRN Reason: Sleep Last Admin: 02/27/21 21:12 Dose: 3 mg Documented by: Miscellaneous Information (Remove Patch) 0 ea TRDERM DAILY [facility] Last Admin: 02/27/21 10:42 Dose: 1 ea Documented by: Morphine Sulfate (Morphine 2 Mg/Ml Syringe) 2 mg IVPUSH Q2H PRN PRN Reason: Pain (severe 7-10) Last Admin: 02/28/21 06:28 Dose: 2 mg Documented by: Nicotine (Nicotine 21 Mg/24 Hr Patch) 21 mg TRDERM DAILY [facility] Last Admin: 02/27/21 10:41 Dose: 21 mg Documented by: Ondansetron HCl (Ondansetron 4 Mg/2 Ml Sdv) 4 mg IV Q4H PRN PRN Reason: Nausea/Vomiting Last Admin: 02/28/21 02:44 Dose: 4 mg Documented by: Oxycodone HCl (Oxycodone 5 Mg Tab) 5 mg PO Q6H PRN PRN Reason: Abdominal Pain Last Admin: 02/28/21 03:16 Dose: 5 mg Documented by: Pantoprazole Sodium (Pantoprazole 40 Mg Vial) 40 mg IV Q12HR [facility] Last Admin: 02/27/21 21:12 Dose: 40 mg Documented by: Sucralfate (Sucralfate 1 Gm Tab) 1 gm PO QIDACANDBED [facility] Last Admin: 02/27/21 21:11 Dose: 1 gm Documented by: Discontinued Medications Benzocaine (Benzocaine 20% Topical [place] Ud) Confirm Administered Dose 1 each .ROUTE .STK-MED ONE Stop: 02/26/21 09:56 Last Admin: 02/26/21 10:10 Dose: Not Given Documented by: Benzocaine (Benzocaine 20% Topical [place] Ud) 1 each MUCMEM ONETIME ONE Stop: 02/26/21 10:11 Last Admin: 02/26/21 10:11 Dose: 1 each Documented by: Diatrizoate Meglum/Diatrizoate Sod (Diatrizoate Meglumine/Diatrizoate Sodium 37% 120 Ml Bottle) 120 ml PO ONETIME ONE Stop: 02/26/21 12:07 Last Admin: 02/26/21 13:06 Dose: 1 bot Documented by: Fentanyl (Fentanyl 100 Mcg/2 Ml Sdv) Confirm Administered Dose 100 mcg .ROUTE .STK-MED ONE Stop: 02/28/21 06:42 Hydromorphone HCl (Hydromorphone 1 Mg/Ml Syringe) 1 mg IVPUSH ONETIME ONE Stop: 02/25/21 23:30 Last Admin: 02/26/21 00:18 Dose: 1 mg Documented by: Hydromorphone HCl (Hydromorphone 1 Mg/Ml Syringe) 1 mg IVPUSH ONETIME ONE Stop: 02/26/21 06:08 Last Admin: 02/26/21 06:13 Dose: 1 mg Documented by: Pantoprazole Sodium 40 mg/ (Sodium Chloride) 100 mls @ 200 mls/hr IV ONETIME ONE Stop: 02/25/21 23:57 Last Admin: 02/26/21 00:13 Dose: 200 mls/hr Documented by: Sodium Chloride (Normal Saline) 1,000 mls @ 1,000 mls/hr IV ONETIME ONE Stop: 02/26/21 00:29 Last Admin: 02/26/21 00:12 Dose: 1,000 mls/hr Documented by: Sodium Chloride (Normal Saline) 150 mls @ 150 mls/hr IV ASDIRECTED ONE Stop: 02/26/21 03:24 Last Admin: 02/26/21 02:37 Dose: Not Given Documented by: Sodium Chloride (Normal Saline) Confirm Administered Dose 1,000 mls @ as directed .ROUTE .STK-MED ONE Stop: 02/26/21 02:34 Last Admin: 02/26/21 02:37 Dose: Not Given Documented by: Sodium Chloride (Normal Saline) 1,000 mls @ 150 mls/hr IV ONETIME ONE Stop: 02/26/21 09:16 Last Admin: 02/26/21 02:42 Dose: 150 mls/hr Documented by: Lactated Ringer's (Ringers, Lactated) 1,000 mls @ 125 mls/hr IV ASDIRECTED [facility] Last Admin: 02/27/21 05:17 Dose: 125 mls/hr Documented by: Lactated Ringer's (Ringers, Lactated) Confirm Administered Dose 1,000 mls @ as directed .ROUTE .STK-MED ONE Stop: 02/28/21 06:42 Influenza Virus Vaccine (Flu Vacc [id number] 36mos Up/Pf 60 Mcg/0.5 Ml Syringe) 60 mcg IM .ONCE ONE Stop: 02/26/21 11:31 Last Admin: 02/27/21 07:52 Dose: Not Given Documented by: Midazolam HCl (Midazolam 1 Mg/Ml 2 Ml Sdv) Confirm Administered Dose 2 mg .ROUTE .STK-MED ONE Stop: 02/28/21 06:42 Morphine Sulfate (Morphine 4 Mg/Ml Syringe) 4 mg IVPUSH ONETIME ONE Stop: 02/26/21 08:46 Last Admin: 02/26/21 09:40 Dose: 4 mg Documented by: Morphine Sulfate (Morphine 2 Mg/Ml Syringe) 2 mg IVPUSH Q2H PRN PRN Reason: Pain (severe 7-10) Stop: 02/27/21 13:10 Last Admin: 02/27/21 05:17 Dose: 2 mg Documented by: Morphine Sulfate (Morphine 2 Mg/Ml Syringe) 2 mg IVPUSH ONETIME ONE Stop: 02/28/21 02:15 Last Admin: 02/28/21 02:21 Dose: 2 mg Documented by: Ondansetron HCl (Ondansetron 4 Mg/2 Ml Sdv) 4 mg IVPUSH ONETIME ONE Stop: 02/25/21 23:30 Last Admin: 02/26/21 00:13 Dose: 4 mg Documented by: Ondansetron HCl (Ondansetron 4 Mg/2 Ml Sdv) 4 mg IVPUSH ONETIME ONE Stop: 02/26/21 08:46 Last Admin: 02/26/21 09:38 Dose: 4 mg Documented by: Propofol (Propofol 200 Mg/20 Ml Sdv) Confirm Administered Dose 200 mg .ROUTE .STK-MED ONE Stop: 02/28/21 06:43 Trazodone HCl (Trazodone 50 Mg Tab) 50 mg PO ONETIME ONE Stop: 02/26/21 20:06 Last Admin: 02/26/21 21:17 Dose: 50 mg Documented by: - Exam General: Alert, Oriented, Cooperative Lungs: Clear to Auscultation, Normal Respiratory Effort Cardiovascular: Regular Rate, Regular Rhythm, No Murmurs GI/Abdominal Exam: Soft, No Distention, Tender (epigastrium) - Patient Data Lab Results Last 24 hrs: Laboratory Results - last 24 hr 02/27/21 02/28/21 02/28/21 Range/Units 06:15 06:14 06:14 WBC 9.40 H (4.23-9.07) K/mm3 RBC 4.48 L (4.63-6.08) M/mm3 Hgb 13.9 (13.7-17.5) gm/dl Hct 40.9 (40.1-51.0) % MCV 91.3 (79.0-92.2) fl MCH 31.0 (25.7-32.2) pg MCHC 34.0 (32.2-35.5) g/dl RDW Std Deviation 40.7 (35.1-43.9) fL Plt Count 243 (163-337) K/mm3 MPV 9.1 L (9.4-12.3) fl Neut % (Auto) 58.0 (34.0-67.9) % Lymph % (Auto) 32.3 (21.8-53.1) % Price % (Auto) 8.7 (5.3-12.2) % Eos % (Auto) 0.6 L (0.8-7.0) Baso % (Auto) 0.2 (0.1-1.2) % Neut # (Auto) 5.44 H (1.78-5.38) K/mm3 Lymph # (Auto) 3.04 (1.32-3.57) K/mm3 Price # (Auto) 0.82 (0.30-0.82) K/mm3 Eos # (Auto) 0.06 (0.04-0.54) K/mm3 Baso # (Auto) 0.02 (0.01-0.08) K/mm3 Sodium 144 144 (136-145) mEq/L Potassium 3.5 3.8 (3.5-5.1) mEq/L Chloride 108 H 108 H (98-107) mEq/L Carbon Dioxide 28 28 (21-32) mEq/L Anion Gap 11.5 11.8 (5-15) BUN 4 L 5 L (7-18) mg/dL Creatinine 0.8 1.0 (0.7-1.3) mg/dL Est Cr Clr Drug Dosing 123.71 98.97 mL/min Estimated GFR (MDRD) > 60 > 60 (>60) mL/min BUN/Creatinine Ratio 5.0 L 5.0 L (14-18) Glucose 105 H 115 H (70-99) mg/dL Calcium 9.1 9.1 (8.5-10.1) mg/dL Phosphorus 3.0 3.5 (2.6-4.7) mg/dL Magnesium 1.8 2.0 (1.8-2.4) mg/dL Result Diagrams: 02/28/21 06:14 02/28/21 06:14 Sepsis Event Note - Evaluation Sepsis Screening Result: No Definite Risk - Focused Exam Vital Signs: Vital Signs Temp Pulse Resp BP Pulse Ox 02/28/21 04:19 97.9 F 63 14 127/68 95 02/28/21 02:22 98.4 F 15 02/28/21 02:16 67 140/83 96 02/27/21 20:20 98.2 F 89 14 122/58 L 97 - Problem List Review Problem List Initiated/Reviewed/Updated: No - My Orders Last 24 Hours: My Active Orders 02/27/21 08:18 Docusate Sodium [Colace] 100 mg PO Q12H PRN 02/27/21 09:00 Enoxaparin [Lovenox] 40 mg SUBCUT DAILY Remove Patch 0 ea TRDERM DAILY 02/27/21 10:23 oxyCODONE 5 mg PO Q6H PRN 02/27/21 10:30 D5 1/2 NS w/ 20 mEq/L KCl 1,000 ml IV ASDIRECTED 02/27/21 11:00 Sucralfate [Carafate] 1 gm PO QIDACANDBED 02/27/21 Dinner Clear Liquid Diet [DIET] 02/27/21 20:32 Melatonin 3 mg PO BEDTIME PRN 02/28/21 03:27 Morphine 2 mg IVPUSH Q2H PRN 02/28/21 06:45 Schedule Procedure [COMM] Routine 02/28/21 07:38 HIDA with EF [Cholescintigraphy w Pharm Int] [NM] Urgent 02/28/21 07:45 CELIAC AB TTG DGP TIGA [REF] Routine 02/28/21 Dinner NPO After Midnight [Nothing per Oral After Midnight Diet] [DIET] 03/01/21 05:11 BASIC METABOLIC PANEL,BMP [CHEM] AM CBC WITH AUTO DIFF [HEME] AM MAGNESIUM [CHEM] AM PHOSPHORUS [CHEM] AM - Assessment Assessment:: HD3 abd pain. No obstruction. no cholelithiasis. EGD completed and shows LA grade A esophagitis, stomach mucosa is normal, duodenal mucosa no gross lesions. Biopsies from duodenum taken for celiac and biopsies from stomach taken for Histology and H.pylori - Plan Plan:: Plan - Will order HIDA scan. NPO till this is done - Celiac blood test - Pain management - Continue IVF
--- NOTE | 2021-02-28 08:26 | PROC ---
DATE OF OPERATION: 02/28/2021 SURGEON: Ofelia Perez MD PREOPERATIVE DIAGNOSIS: Epigastric and right upper quadrant pain. POSTOPERATIVE DIAGNOSES: Esophagitis and proximal patchy mucosal lesion of the esophagus at 18 cm from incisors. OPERATION PERFORMED: Esophagogastroduodenoscopy with biopsies. ESTIMATED BLOOD LOSS: Minimal. ANESTHESIA: Monitored anesthesia care. COMPLICATIONS: None. INDICATION AND CONSENT: The patient, 25, has been admitted for concern for bowel obstruction, which was ruled out. However, the patient continued to have right upper quadrant pain. Ultrasound was negative. Therefore, I recommended proceeding with an EGD to see if there is any concern for ulcer. We discussed risks, benefits and alternatives, and informed consent was obtained. DESCRIPTION OF PROCEDURE: The patient was taken to the procedure room, placed in the left lateral decubitus position. Following induction of monitored anesthesia care, a time- out was performed. A bite block was placed and we began the procedure. Scope was placed into the mouth and taken all the way to the second portion of duodenum which appeared normal with a slight blunting of villous and there was no bile in the duodenum. Biopsies were taken of the duodenum to check for celiac disease. Then the first and duodenal bulb were all normal. Antrum was normal. However, biopsies were taken with cold forceps to examine for H. pylori. On retroflexion, there was a very very small hiatal hernia, otherwise the gastric body was normal. GE junction was at 42 cm and it was irregular, indicating LA grade A esophagitis. No biopsies were taken. The esophagus was otherwise normal. However, in the proximal esophagus around 18 cm from incisors, there were 2 small patches of abnormal mucosa of the esophagus. One of these patches were biopsied with cold forceps for pathologic exam. The patches were about 3 to 4 mm in size. Then air was suctioned out and the procedure was concluded. The patient will be returned to the floor for further management. MMODAL /[id number] [id number]
[2021-02-28] MEDS: Nicotine 21 MG/24 Hr Patch TRDERM SCH (10:19)
[2021-02-28] MEDS: Sucralfate 1 GM Tab PO SCH ×5 (10:22→21:34)
[2021-02-28] MEDS: Enoxaparin 40 MG/0.4 ML Syringe SUBCUT SCH (10:24)
[2021-02-28] MEDS: Pantoprazole 40 MG Vial IV SCH ×2 (10:24→21:35)
[2021-02-28] MEDS ORDERED: Ketorolac 30 MG/ML SDV ONE (18:52)
[2021-02-28] MEDS ORDERED: Ketorolac 30 MG/ML SDV IVPUSH ONE (18:55)
--- NOTE | 2021-02-28 19:03 | PCM.SN.2 ---
- Free Text/Narrative Note: I saw the patient just now. He was trying gluten free diet today. His abdominal pain recurred this afternoon immediately after trying to eat a hamburger. Pain is starting on the RLQ radiating to the RUQ and right back. Pain is excruciating. Patient dry heaved but no much emesis. Passed flatus today not BM, Otherwise VSS. Plan - CT a/p with PO and Iv contrast tonight - HIDA tomorrow - NPO now with IVF - Toradol 30mg x 1 now and 15mg Q6h PRN after Midnight - Stop all opioids after Midnight due to HIDA scan
[2021-02-28] MEDS ORDERED: Iopamidol 612 MG/ML 100 ML Bottle IVPUSH ONE (19:24)
[2021-02-28] MEDS ORDERED: Iopamidol 612 MG/ML 50 ML SDV IVPUSH ONE (19:24)
[2021-02-28] MEDS ORDERED: Diatrizoate Meglumine/Diatrizoate Sodium 37% 120 ML Bottle PO ONE (19:24)
[2021-02-28] MEDS: D5 1/2 NS w/ 20 mEq/L KCl 1,000 ML IV SCH (20:25)
[2021-02-28] MEDS: Melatonin 3 MG Tab PO PRN (21:34)
[2021-03-01] MEDS ORDERED: Ketorolac 15 MG/ML SDV IVPUSH PRN (01:00)
--- NOTE | 2021-03-01 06:19 | CT ---
CT abdomen and pelvis Technique: Multiple axial sections were obtained from above the dome of the diaphragm inferiorly through the pubic symphysis. Intravenous and oral contrast were utilized. Delayed images were also obtained through the bladder. Reconstructed coronal and sagittal images were obtained. Comparison: Prior right upper quadrant abdominal ultrasound of 02/27/21 and abdominal x-ray of 02/26/21. Findings: Visualized lung bases show nothing acute. Liver shows no focal abnormality. Gallbladder is not well distended. No calcifications are seen within the gallbladder. Spleen appears normal in size. Adrenal glands show no nodule. Pancreas shows no discrete abnormality. Kidneys show symmetric contrast enhancement. No hydronephrosis or mass is seen. Abdominal aorta shows no aneurysm. No retroperitoneal adenopathy or mesenteric abnormalities are seen. No pelvic mass or adenopathy is seen. Appendix is not definitely seen. There are no dilated tubular structures being seen within the right lower quadrant. No inflammatory change or free fluid is seen. Slight increased stool is noted within the colon. Delayed images show no contrast within the bladder suggesting possible dehydration. Bone window settings were reviewed. No acute osseous finding is seen. Slight expansile lesion is seen posterior to S1 on the left side. This either represents a nerve root diverticulum or Tarlov cyst which is most likely incidental. Impression: 1. Nothing acute is seen on CT study of the abdomen and pelvis. 2. 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 Diagnostic code #2 I agree with preliminary report from [facility], finalized on 02/28/21, 9:54 PM STAFF RESEARCH SCIENTIST, code 1
[2021-03-01] MEDS: D5 1/2 NS w/ 20 mEq/L KCl 1,000 ML IV SCH (07:01)
--- NOTE | 2021-03-01 09:53 | PCM.PN ---
- General Info Date of Service: 03/01/21 Admission Dx/Problem (Free Text): SBO Subjective Update: Patient did fine overnight, no acute issues. Not much pain. Patient appears frustrated that we stopped opioid pain medications overnight and gave him only Toradol. Functional Status: Reports: Pain Controlled, Ambulating, Urinating - Review of Systems General: Reports: No Symptoms HEENT: Reports: No Symptoms Pulmonary: Reports: No Symptoms Cardiovascular: Reports: No Symptoms Gastrointestinal: Reports: Abdominal Pain Genitourinary: Reports: No Symptoms Musculoskeletal: Reports: No Symptoms Skin: Reports: No Symptoms Neurological: Reports: No Symptoms - Patient Data Vitals - Most Recent: Last Vital Signs Temp 98.1 F 03/01/21 05:08 Pulse 62 03/01/21 05:08 Resp 16 03/01/21 05:08 BP 116/81 03/01/21 05:08 Pulse Ox 96 03/01/21 05:08 Weight - Most Recent: 62.505 kg I&O - Last 24 Hours: Intake & Output 02/28/21 03/01/21 03/01/21 22:59 06:59 14:59 Intake Total 1680 700 Balance 1680 700 Lab Results Last 24 Hours: Laboratory Results - last 24 hr 03/01/21 03/01/21 Range/Units 04:56 04:56 WBC 10.92 H (4.23-9.07) K/mm3 RBC 4.28 L (4.63-6.08) M/mm3 Hgb 13.4 L (13.7-17.5) gm/dl Hct 39.0 L (40.1-51.0) % MCV 91.1 (79.0-92.2) fl MCH 31.3 (25.7-32.2) pg MCHC 34.4 (32.2-35.5) g/dl RDW Std Deviation 39.8 (35.1-43.9) fL Plt Count 237 (163-337) K/mm3 MPV 9.1 L (9.4-12.3) fl Neut % (Auto) 62.7 (34.0-67.9) % Lymph % (Auto) 27.7 (21.8-53.1) % [place] % (Auto) 8.2 (5.3-12.2) % Eos % (Auto) 1.1 (0.8-7.0) Baso % (Auto) 0.2 (0.1-1.2) % Neut # (Auto) 6.86 H (1.78-5.38) K/mm3 Lymph # (Auto) 3.02 (1.32-3.57) K/mm3 [place] # (Auto) 0.89 H (0.30-0.82) K/mm3 Eos # (Auto) 0.12 (0.04-0.54) K/mm3 Baso # (Auto) 0.02 (0.01-0.08) K/mm3 Sodium 143 (136-145) mEq/L Potassium 3.9 (3.5-5.1) mEq/L Chloride 108 H (98-107) mEq/L Carbon Dioxide 27 (21-32) mEq/L Anion Gap 11.9 (5-15) BUN 8 (7-18) mg/dL Creatinine 0.8 (0.7-1.3) mg/dL Est Cr Clr Drug Dosing 123.71 mL/min Estimated GFR (MDRD) > 60 (>60) mL/min BUN/Creatinine Ratio 10.0 L (14-18) Glucose 114 H (70-99) mg/dL Calcium 8.9 (8.5-10.1) mg/dL Phosphorus 4.9 H (2.6-4.7) mg/dL Magnesium 2.1 (1.8-2.4) mg/dL Lipase 213 (73-393) U/L Med Orders - Current: Current Medications Discontinued Medications Benzocaine (Benzocaine 20% Topical [place]) Confirm Administered Dose 1 each .ROUTE .STK-MED ONE Stop: 02/26/21 09:56 Last Admin: 02/26/21 10:10 Dose: Not Given Documented by: Benzocaine (Benzocaine 20% Topical [place]) 1 each MUCMEM ONETIME ONE Stop: 02/26/21 10:11 Last Admin: 02/26/21 10:11 Dose: 1 each Documented by: Diatrizoate Meglum/Diatrizoate Sod (Diatrizoate Meglumine/Diatrizoate Sodium 37% 120 Ml Bottle) 120 ml PO ONETIME ONE Stop: 02/26/21 12:07 Last Admin: 02/26/21 13:06 Dose: 1 bot Documented by: Diatrizoate Meglum/Diatrizoate Sod (Diatrizoate Meglumine/Diatrizoate Sodium 37% 120 Ml Bottle) 45 ml PO ONETIME ONE Stop: 02/28/21 19:25 Last Admin: 02/28/21 20:11 Dose: 45 ml Documented by: Docusate Sodium (Docusate Sodium 100 Mg Cap) 100 mg PO Q12H PRN PRN Reason: Constipation Enoxaparin Sodium (Enoxaparin 40 Mg/0.4 Ml Syringe) 40 mg SUBCUT DAILY [facility] Last Admin: 02/28/21 10:24 Dose: Not Given Documented by: Fentanyl (Fentanyl 100 Mcg/2 Ml Sdv) Confirm Administered Dose 100 mcg .ROUTE .STK-MED ONE Stop: 02/28/21 06:42 Hydromorphone HCl (Hydromorphone 1 Mg/Ml Syringe) 1 mg IVPUSH ONETIME ONE Stop: 02/25/21 23:30 Last Admin: 02/26/21 00:18 Dose: 1 mg Documented by: Hydromorphone HCl (Hydromorphone 1 Mg/Ml Syringe) 1 mg IVPUSH ONETIME ONE Stop: 02/26/21 06:08 Last Admin: 02/26/21 06:13 Dose: 1 mg Documented by: Pantoprazole Sodium 40 mg/ (Sodium Chloride) 100 mls @ 200 mls/hr IV ONETIME ONE Stop: 02/25/21 23:57 Last Admin: 02/26/21 00:13 Dose: 200 mls/hr Documented by: Sodium Chloride (Normal Saline) 1,000 mls @ 1,000 mls/hr IV ONETIME ONE Stop: 02/26/21 00:29 Last Admin: 02/26/21 00:12 Dose: 1,000 mls/hr Documented by: Sodium Chloride (Normal Saline) 150 mls @ 150 mls/hr IV ASDIRECTED ONE Stop: 02/26/21 03:24 Last Admin: 02/26/21 02:37 Dose: Not Given Documented by: Sodium Chloride (Normal Saline) Confirm Administered Dose 1,000 mls @ as directed .ROUTE .STK-MED ONE Stop: 02/26/21 02:34 Last Admin: 02/26/21 02:37 Dose: Not Given Documented by: Sodium Chloride (Normal Saline) 1,000 mls @ 150 mls/hr IV ONETIME ONE Stop: 02/26/21 09:16 Last Admin: 02/26/21 02:42 Dose: 150 mls/hr Documented by: Lactated Ringer's (Ringers, Lactated) 1,000 mls @ 125 mls/hr IV ASDIRECTED [facility] Last Admin: 02/27/21 05:17 Dose: 125 mls/hr Documented by: Potassium Chloride/Dextrose/Sod Cl (D5 1/2 Ns W/ 20 Meq/L Kcl) 1,000 mls @ 100 mls/hr IV ASDIRECTED [facility] Last Admin: 02/27/21 21:09 Dose: 100 mls/hr Documented by: Lactated Ringer's (Ringers, Lactated) Confirm Administered Dose 1,000 mls @ as directed .ROUTE .STK-MED ONE Stop: 02/28/21 06:42 Potassium Chloride/Dextrose/Sod Cl (D5 1/2 Ns W/ 20 Meq/L Kcl) 1,000 mls @ 100 mls/hr IV ASDIRECTED [facility] Last Admin: 03/01/21 07:01 Dose: 100 mls/hr Documented by: Influenza Virus Vaccine (Flu Vacc [id number] 36mos Up/Pf 60 Mcg/0.5 Ml Syringe) 60 mcg IM .ONCE ONE Stop: 02/26/21 11:31 Last Admin: 02/27/21 07:52 Dose: Not Given Documented by: Iopamidol (Iopamidol 612 Mg/Ml 100 Ml Bottle) 100 ml IVPUSH ONETIME ONE Stop: 02/28/21 19:25 Last Admin: 02/28/21 20:11 Dose: 100 ml Documented by: Iopamidol (Iopamidol 612 Mg/Ml 50 Ml Sdv) 25 ml IVPUSH ONETIME ONE Stop: 02/28/21 19:25 Last Admin: 02/28/21 20:11 Dose: 25 ml Documented by: Ketorolac Tromethamine (Ketorolac 30 Mg/Ml Sdv) Confirm Administered Dose 30 mg .ROUTE .STK-MED ONE Stop: 02/28/21 18:53 Last Admin: 02/28/21 18:57 Dose: 30 mg Documented by: Ketorolac Tromethamine (Ketorolac 30 Mg/Ml Sdv) 30 mg IVPUSH ONETIME ONE Stop: 02/28/21 18:56 Last Admin: 02/28/21 18:59 Dose: Not Given Documented by: Ketorolac Tromethamine (Ketorolac 15 Mg/Ml Sdv) 15 mg IVPUSH Q6H PRN PRN Reason: Abdominal Pain Melatonin (Melatonin 3 Mg Tab) 3 mg PO BEDTIME PRN PRN Reason: Sleep Last Admin: 02/28/21 21:34 Dose: 3 mg Documented by: Midazolam HCl (Midazolam 1 Mg/Ml 2 Ml Sdv) Confirm Administered Dose 2 mg .ROUTE .STK-MED ONE Stop: 02/28/21 06:42 Miscellaneous Information (Remove Patch) 0 ea TRDERM DAILY [facility] Last Admin: 02/28/21 10:24 Dose: 1 ea Documented by: Morphine Sulfate (Morphine 4 Mg/Ml Syringe) 4 mg IVPUSH ONETIME ONE Stop: 02/26/21 08:46 Last Admin: 02/26/21 09:40 Dose: 4 mg Documented by: Morphine Sulfate (Morphine 2 Mg/Ml Syringe) 2 mg IVPUSH Q2H PRN PRN Reason: Pain (severe 7-10) Stop: 02/27/21 13:10 Last Admin: 02/27/21 05:17 Dose: 2 mg Documented by: Morphine Sulfate (Morphine 2 Mg/Ml Syringe) 2 mg IVPUSH ONETIME ONE Stop: 02/28/21 02:15 Last Admin: 02/28/21 02:21 Dose: 2 mg Documented by: Morphine Sulfate (Morphine 2 Mg/Ml Syringe) 2 mg IVPUSH Q2H PRN PRN Reason: Pain (severe 7-10) Stop: 02/28/21 23:59 Last Admin: 02/28/21 21:32 Dose: 2 mg Documented by: Nicotine (Nicotine 21 Mg/24 Hr Patch) 21 mg TRDERM DAILY [facility] Last Admin: 02/28/21 10:19 Dose: 21 mg Documented by: Ondansetron HCl (Ondansetron 4 Mg/2 Ml Sdv) 4 mg IVPUSH ONETIME ONE Stop: 02/25/21 23:30 Last Admin: 02/26/21 00:13 Dose: 4 mg Documented by: Ondansetron HCl (Ondansetron 4 Mg/2 Ml Sdv) 4 mg IVPUSH ONETIME ONE Stop: 02/26/21 08:46 Last Admin: 02/26/21 09:38 Dose: 4 mg Documented by: Ondansetron HCl (Ondansetron 4 Mg/2 Ml Sdv) 4 mg IV Q4H PRN PRN Reason: Nausea/Vomiting Last Admin: 02/28/21 02:44 Dose: 4 mg Documented by: Oxycodone HCl (Oxycodone 5 Mg Tab) 5 mg PO Q6H PRN PRN Reason: Abdominal Pain Stop: 02/28/21 23:59 Last Admin: 02/28/21 20:24 Dose: 5 mg Documented by: Pantoprazole Sodium (Pantoprazole 40 Mg Vial) 40 mg IV Q12HR [facility] Last Admin: 02/28/21 21:35 Dose: 40 mg Documented by: Propofol (Propofol 200 Mg/20 Ml Sdv) Confirm Administered Dose 200 mg .ROUTE .STK-MED ONE Stop: 02/28/21 06:43 Sucralfate (Sucralfate 1 Gm Tab) 1 gm PO QIDACANDBED [facility] Last Admin: 02/28/21 21:34 Dose: 1 gm Documented by: Trazodone HCl (Trazodone 50 Mg Tab) 50 mg PO ONETIME ONE Stop: 02/26/21 20:06 Last Admin: 02/26/21 21:17 Dose: 50 mg Documented by: - Exam General: Alert, Oriented, Cooperative Lungs: Normal Respiratory Effort Cardiovascular: Regular Rate, Regular Rhythm GI/Abdominal Exam: Soft, Tender (epigastrium) - Patient Data Lab Results Last 24 hrs: Laboratory Results - last 24 hr 03/01/21 03/01/21 Range/Units 04:56 04:56 WBC 10.92 H (4.23-9.07) K/mm3 RBC 4.28 L (4.63-6.08) M/mm3 Hgb 13.4 L (13.7-17.5) gm/dl Hct 39.0 L (40.1-51.0) % MCV 91.1 (79.0-92.2) fl MCH 31.3 (25.7-32.2) pg MCHC 34.4 (32.2-35.5) g/dl RDW Std Deviation 39.8 (35.1-43.9) fL Plt Count 237 (163-337) K/mm3 MPV 9.1 L (9.4-12.3) fl Neut % (Auto) 62.7 (34.0-67.9) % Lymph % (Auto) 27.7 (21.8-53.1) % [place] % (Auto) 8.2 (5.3-12.2) % Eos % (Auto) 1.1 (0.8-7.0) Baso % (Auto) 0.2 (0.1-1.2) % Neut # (Auto) 6.86 H (1.78-5.38) K/mm3 Lymph # (Auto) 3.02 (1.32-3.57) K/mm3 [place] # (Auto) 0.89 H (0.30-0.82) K/mm3 Eos # (Auto) 0.12 (0.04-0.54) K/mm3 Baso # (Auto) 0.02 (0.01-0.08) K/mm3 Sodium 143 (136-145) mEq/L Potassium 3.9 (3.5-5.1) mEq/L Chloride 108 H (98-107) mEq/L Carbon Dioxide 27 (21-32) mEq/L Anion Gap 11.9 (5-15) BUN 8 (7-18) mg/dL Creatinine 0.8 (0.7-1.3) mg/dL Est Cr Clr Drug Dosing 123.71 mL/min Estimated GFR (MDRD) > 60 (>60) mL/min BUN/Creatinine Ratio 10.0 L (14-18) Glucose 114 H (70-99) mg/dL Calcium 8.9 (8.5-10.1) mg/dL Phosphorus 4.9 H (2.6-4.7) mg/dL Magnesium 2.1 (1.8-2.4) mg/dL Lipase 213 (73-393) U/L Result Diagrams: 03/01/21 04:56 03/01/21 04:56 Sepsis Event Note - Evaluation Sepsis Screening Result: No Definite Risk - Focused Exam Vital Signs: Vital Signs Temp Pulse Resp BP Pulse Ox 03/01/21 05:08 98.1 F 62 16 116/81 96 02/28/21 23:56 98.2 F 72 16 118/66 95 - Problem List Review Problem List Initiated/Reviewed/Updated: No - Assessment Assessment:: HD4 abd pain. No obstruction. No cholelithiasis. EGD completed and shows LA grade A esophagitis, stomach mucosa is normal, duodenal mucosa no gross lesions. Biopsies from duodenum taken for celiac and biopsies from stomach taken for Histology and H.pylori. CT a/p done yesterday as the patient had recurrent acute pain. 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 - Plan Plan:: Plan - Plan was to do a HIDA scan today, and continue Toradol for pain control. However, patient decided to leave AMA. He left prior to doing a HIDA scan.
--- NOTE | 2021-03-01 09:59 | PCM.DCSUM1 ---
Discharge Summary - Hospital Course Free Text/Narrative:: Patient presented to the ER after leaving [facility] for possible SBO. In the ER he continued to have abdominal pain. He was admitted for observation. He passed the contrast challenge and Po was introduced, however, the patient continued to complain of severe postprandial abdominal pain. He was started on PPI on admission and Carafate was added later. RUQ US and EGD were both normal except for mild esophagitis on EGD. GLuten free diet was tried and patient continued to have postprandial pain. Repeat CT a/p was done and did not reveal any intraabdominal abnormalities. Opioids were stopped and Toradol was started for pain. HIDA scan was planned for today, however, the patient decided to leave [place]. Patient started having normal bowel function after 1 day in the hospital. Diagnosis: Stroke: No - Discharge Data Discharge Date: 03/01/21 Discharge Disposition: Against Medical Advice 07 Condition: Fair - Referral to Home Health Primary Care Physician: PCP Not In Area - Discharge Plan *PRESCRIPTION DRUG MONITORING PROGRAM REVIEWED*: Not Applicable *COPY OF PRESCRIPTION DRUG MONITORING REPORT IN PATIENT SHAHNAZ: Not Applicable Patient Handouts: Bowel Obstruction, [id number], Upper Endoscopy, Adult, Care After, Upper Endoscopy, Adult, Steps to Quit Smoking Forms: ED Department Discharge Referrals: Fabiano Pham MD [Physician] - 03/08/21 10:00 am (Please arrive at 9:30 for paper work and to check in. This appt. is to establish care and follow up from the hospital) Ofelia Perez MD [Physician] - - Discharge Summary/Plan Comment DC Time >30 min.: No Total # of Minutes for Discharge Time: Left AMA - General Info Date of Service: 03/01/21 Admission Dx/Problem (Free Text: SBO Subjective Update: Patient did fine overnight, no acute issues. Not much pain. Patient appears frustrated that we stopped opioid pain medications overnight and gave him only Toradol. Functional Status: Reports: Pain Controlled, Ambulating, Urinating, Other - Review of Systems General: Reports: No Symptoms HEENT: Reports: No Symptoms Pulmonary: Reports: No Symptoms Cardiovascular: Reports: No Symptoms Gastrointestinal: Reports: Abdominal Pain Genitourinary: Reports: No Symptoms Musculoskeletal: Reports: No Symptoms Skin: Reports: No Symptoms Neurological: Reports: No Symptoms - Patient Data Vitals - Most Recent: Last Vital Signs Temp 98.1 F 03/01/21 05:08 Pulse 62 03/01/21 05:08 Resp 16 03/01/21 05:08 BP 116/81 03/01/21 05:08 Pulse Ox 96 03/01/21 05:08 Weight - Most Recent: 62.505 kg I&O - Last 24 hours: Intake & Output 02/28/21 03/01/21 03/01/21 22:59 06:59 14:59 Intake Total 1680 700 Balance 1680 700 Lab Results - Last 24 hrs: Laboratory Results - last 24 hr 03/01/21 03/01/21 Range/Units 04:56 04:56 WBC 10.92 H (4.23-9.07) K/mm3 RBC 4.28 L (4.63-6.08) M/mm3 Hgb 13.4 L (13.7-17.5) gm/dl Hct 39.0 L (40.1-51.0) % MCV 91.1 (79.0-92.2) fl MCH 31.3 (25.7-32.2) pg MCHC 34.4 (32.2-35.5) g/dl RDW Std Deviation 39.8 (35.1-43.9) fL Plt Count 237 (163-337) K/mm3 MPV 9.1 L (9.4-12.3) fl Neut % (Auto) 62.7 (34.0-67.9) % Lymph % (Auto) 27.7 (21.8-53.1) % [place] % (Auto) 8.2 (5.3-12.2) % Eos % (Auto) 1.1 (0.8-7.0) Baso % (Auto) 0.2 (0.1-1.2) % Neut # (Auto) 6.86 H (1.78-5.38) K/mm3 Lymph # (Auto) 3.02 (1.32-3.57) K/mm3 [place] # (Auto) 0.89 H (0.30-0.82) K/mm3 Eos # (Auto) 0.12 (0.04-0.54) K/mm3 Baso # (Auto) 0.02 (0.01-0.08) K/mm3 Sodium 143 (136-145) mEq/L Potassium 3.9 (3.5-5.1) mEq/L Chloride 108 H (98-107) mEq/L Carbon Dioxide 27 (21-32) mEq/L Anion Gap 11.9 (5-15) BUN 8 (7-18) mg/dL Creatinine 0.8 (0.7-1.3) mg/dL Est Cr Clr Drug Dosing 123.71 mL/min Estimated GFR (MDRD) > 60 (>60) mL/min BUN/Creatinine Ratio 10.0 L (14-18) Glucose 114 H (70-99) mg/dL Calcium 8.9 (8.5-10.1) mg/dL Phosphorus 4.9 H (2.6-4.7) mg/dL Magnesium 2.1 (1.8-2.4) mg/dL Lipase 213 (73-393) U/L Med Orders - Current: Current Medications Discontinued Medications Benzocaine (Benzocaine 20% Topical [place] Ud) Confirm Administered Dose 1 each .ROUTE .STK-MED ONE Stop: 02/26/21 09:56 Last Admin: 02/26/21 10:10 Dose: Not Given Documented by: Benzocaine (Benzocaine 20% Topical [place] Ud) 1 each MUCMEM ONETIME ONE Stop: 02/26/21 10:11 Last Admin: 02/26/21 10:11 Dose: 1 each Documented by: Diatrizoate Meglum/Diatrizoate Sod (Diatrizoate Meglumine/Diatrizoate Sodium 37% 120 Ml Bottle) 120 ml PO ONETIME ONE Stop: 02/26/21 12:07 Last Admin: 02/26/21 13:06 Dose: 1 bot Documented by: Diatrizoate Meglum/Diatrizoate Sod (Diatrizoate Meglumine/Diatrizoate Sodium 37% 120 Ml Bottle) 45 ml PO ONETIME ONE Stop: 02/28/21 19:25 Last Admin: 02/28/21 20:11 Dose: 45 ml Documented by: Docusate Sodium (Docusate Sodium 100 Mg Cap) 100 mg PO Q12H PRN PRN Reason: Constipation Enoxaparin Sodium (Enoxaparin 40 Mg/0.4 Ml Syringe) 40 mg SUBCUT DAILY [facility] Last Admin: 02/28/21 10:24 Dose: Not Given Documented by: Fentanyl (Fentanyl 100 Mcg/2 Ml Sdv) Confirm Administered Dose 100 mcg .ROUTE .STK-MED ONE Stop: 02/28/21 06:42 Hydromorphone HCl (Hydromorphone 1 Mg/Ml Syringe) 1 mg IVPUSH ONETIME ONE Stop: 02/25/21 23:30 Last Admin: 02/26/21 00:18 Dose: 1 mg Documented by: Hydromorphone HCl (Hydromorphone 1 Mg/Ml Syringe) 1 mg IVPUSH ONETIME ONE Stop: 02/26/21 06:08 Last Admin: 02/26/21 06:13 Dose: 1 mg Documented by: Pantoprazole Sodium 40 mg/ (Sodium Chloride) 100 mls @ 200 mls/hr IV ONETIME ONE Stop: 02/25/21 23:57 Last Admin: 02/26/21 00:13 Dose: 200 mls/hr Documented by: Sodium Chloride (Normal Saline) 1,000 mls @ 1,000 mls/hr IV ONETIME ONE Stop: 02/26/21 00:29 Last Admin: 02/26/21 00:12 Dose: 1,000 mls/hr Documented by: Sodium Chloride (Normal Saline) 150 mls @ 150 mls/hr IV ASDIRECTED ONE Stop: 02/26/21 03:24 Last Admin: 02/26/21 02:37 Dose: Not Given Documented by: Sodium Chloride (Normal Saline) Confirm Administered Dose 1,000 mls @ as directed .ROUTE .STK-MED ONE Stop: 02/26/21 02:34 Last Admin: 02/26/21 02:37 Dose: Not Given Documented by: Sodium Chloride (Normal Saline) 1,000 mls @ 150 mls/hr IV ONETIME ONE Stop: 02/26/21 09:16 Last Admin: 02/26/21 02:42 Dose: 150 mls/hr Documented by: Lactated Ringer's (Ringers, Lactated) 1,000 mls @ 125 mls/hr IV ASDIRECTED [facility] Last Admin: 02/27/21 05:17 Dose: 125 mls/hr Documented by: Potassium Chloride/Dextrose/Sod Cl (D5 1/2 Ns W/ 20 Meq/L Kcl) 1,000 mls @ 100 mls/hr IV ASDIRECTED [facility] Last Admin: 02/27/21 21:09 Dose: 100 mls/hr Documented by: Lactated Ringer's (Ringers, Lactated) Confirm Administered Dose 1,000 mls @ as directed .ROUTE .STK-MED ONE Stop: 02/28/21 06:42 Potassium Chloride/Dextrose/Sod Cl (D5 1/2 Ns W/ 20 Meq/L Kcl) 1,000 mls @ 100 mls/hr IV ASDIRECTED [facility] Last Admin: 03/01/21 07:01 Dose: 100 mls/hr Documented by: Influenza Virus Vaccine (Flu Vacc [id number] 36mos Up/Pf 60 Mcg/0.5 Ml Syringe) 60 mcg IM .ONCE ONE Stop: 02/26/21 11:31 Last Admin: 02/27/21 07:52 Dose: Not Given Documented by: Iopamidol (Iopamidol 612 Mg/Ml 100 Ml Bottle) 100 ml IVPUSH ONETIME ONE Stop: 02/28/21 19:25 Last Admin: 02/28/21 20:11 Dose: 100 ml Documented by: Iopamidol (Iopamidol 612 Mg/Ml 50 Ml Sdv) 25 ml IVPUSH ONETIME ONE Stop: 02/28/21 19:25 Last Admin: 02/28/21 20:11 Dose: 25 ml Documented by: Ketorolac Tromethamine (Ketorolac 30 Mg/Ml Sdv) Confirm Administered Dose 30 mg .ROUTE .STK-MED ONE Stop: 02/28/21 18:53 Last Admin: 02/28/21 18:57 Dose: 30 mg Documented by: Ketorolac Tromethamine (Ketorolac 30 Mg/Ml Sdv) 30 mg IVPUSH ONETIME ONE Stop: 02/28/21 18:56 Last Admin: 02/28/21 18:59 Dose: Not Given Documented by: Ketorolac Tromethamine (Ketorolac 15 Mg/Ml Sdv) 15 mg IVPUSH Q6H PRN PRN Reason: Abdominal Pain Melatonin (Melatonin 3 Mg Tab) 3 mg PO BEDTIME PRN PRN Reason: Sleep Last Admin: 02/28/21 21:34 Dose: 3 mg Documented by: Midazolam HCl (Midazolam 1 Mg/Ml 2 Ml Sdv) Confirm Administered Dose 2 mg .ROUTE .STK-MED ONE Stop: 02/28/21 06:42 Miscellaneous Information (Remove Patch) 0 ea TRDERM DAILY [facility] Last Admin: 02/28/21 10:24 Dose: 1 ea Documented by: Morphine Sulfate (Morphine 4 Mg/Ml Syringe) 4 mg IVPUSH ONETIME ONE Stop: 02/26/21 08:46 Last Admin: 02/26/21 09:40 Dose: 4 mg Documented by: Morphine Sulfate (Morphine 2 Mg/Ml Syringe) 2 mg IVPUSH Q2H PRN PRN Reason: Pain (severe 7-10) Stop: 02/27/21 13:10 Last Admin: 02/27/21 05:17 Dose: 2 mg Documented by: Morphine Sulfate (Morphine 2 Mg/Ml Syringe) 2 mg IVPUSH ONETIME ONE Stop: 02/28/21 02:15 Last Admin: 02/28/21 02:21 Dose: 2 mg Documented by: Morphine Sulfate (Morphine 2 Mg/Ml Syringe) 2 mg IVPUSH Q2H PRN PRN Reason: Pain (severe 7-10) Stop: 02/28/21 23:59 Last Admin: 02/28/21 21:32 Dose: 2 mg Documented by: Nicotine (Nicotine 21 Mg/24 Hr Patch) 21 mg TRDERM DAILY [facility] Last Admin: 02/28/21 10:19 Dose: 21 mg Documented by: Ondansetron HCl (Ondansetron 4 Mg/2 Ml Sdv) 4 mg IVPUSH ONETIME ONE Stop: 02/25/21 23:30 Last Admin: 02/26/21 00:13 Dose: 4 mg Documented by: Ondansetron HCl (Ondansetron 4 Mg/2 Ml Sdv) 4 mg IVPUSH ONETIME ONE Stop: 02/26/21 08:46 Last Admin: 02/26/21 09:38 Dose: 4 mg Documented by: Ondansetron HCl (Ondansetron 4 Mg/2 Ml Sdv) 4 mg IV Q4H PRN PRN Reason: Nausea/Vomiting Last Admin: 02/28/21 02:44 Dose: 4 mg Documented by: Oxycodone HCl (Oxycodone 5 Mg Tab) 5 mg PO Q6H PRN PRN Reason: Abdominal Pain Stop: 02/28/21 23:59 Last Admin: 02/28/21 20:24 Dose: 5 mg Documented by: Pantoprazole Sodium (Pantoprazole 40 Mg Vial) 40 mg IV Q12HR [facility] Last Admin: 02/28/21 21:35 Dose: 40 mg Documented by: Propofol (Propofol 200 Mg/20 Ml Sdv) Confirm Administered Dose 200 mg .ROUTE .STK-MED ONE Stop: 02/28/21 06:43 Sucralfate (Sucralfate 1 Gm Tab) 1 gm PO QIDACANDBED [facility] Last Admin: 02/28/21 21:34 Dose: 1 gm Documented by: Trazodone HCl (Trazodone 50 Mg Tab) 50 mg PO ONETIME ONE Stop: 02/26/21 20:06 Last Admin: 02/26/21 21:17 Dose: 50 mg Documented by: - Exam General: Reports: Alert, Oriented, Cooperative Lungs: Reports: Normal Respiratory Effort Cardiovascular: Reports: Regular Rate, Regular Rhythm GI/Abdominal Exam: Soft, No Distention, Tender (epigastrium)
== END 2021-03-01 07:59 | disposition left against medical advice (07) | DRG 392 ==
LOC: JD.ED 22:50 → JD.MS 02-26 09:44 → JD.OB 02-26 18:48
PROVIDERS: ADMIT Surgery; ATTEND Surgery
PROC: 0D9670Z Drainage of Stomach with Drainage Device, Via Natural or Artificial Opening (ICD-10-PCS; principal; 2021-02-26)
PROC: 0DB98ZX Excision of Duodenum, Via Natural or Artificial Opening Endoscopic, Diagnostic (ICD-10-PCS; 2021-02-28)
DX: R10.31 Right lower quadrant pain (principal); E27.1 Primary adrenocortical insufficiency; K20.90 Esophagitis, unspecified without bleeding; F17.210 Nicotine dependence, cigarettes, uncomplicated; R10.11 Right upper quadrant pain
CPT/HCPCS: 00731; 36415; 43752; 71045; 71045-26; 74018; 74018-26; 74177; 74177-26; 76705; 76705-26; 80048; 80053; 82784; 83516; 83605; 83690; 83735; 84100; 85007; 85025; 85027; 96365; 96375; 96376; 99285-25; A9270-GY; C9113; J1170; J1650; J1885; J2250; J2270; J2405; J2704; J3010; J3480; J7030; J7120; Q9963; Q9967

== ENCOUNTER 2021-03-30 08:38 | Emergency (ER) | payer MEDICAID ==
[2021-03-30] MEDS ORDERED: ARIPiprazole 5 MG Tab PO ONE (09:09)
[2021-03-30] MEDS ORDERED: LORazepam 1 MG Tab PO ONE (09:10)
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
[2021-03-30 10:11] LABS: ACETAMINOPHEN 0 ug/mL (10-30)
== END 2021-03-30 15:09 | disposition home or self-care (01) ==
LOC: JD.ED 08:38
DX: F15.10 Other stimulant abuse, uncomplicated (principal); Z88.0 Allergy status to penicillin; Z20.822 Contact with and (suspected) exposure to COVID-19
CPT/HCPCS: 36415; 80053; 80143; 80179; 80306; 80307; 81001; 83735; 84443; 85025; 87635; 93005; 99283; A9270; U0002